=== PATIENT | female | born 1995 | race Caucasian/White ===

== ENCOUNTER → 2023-12-31 14:51 | Outpatient (REF) | payer OTHER, SELFPAY | LOC: PNTC 14:51 | PROVIDERS: ATTENDING PHYSICIAN Obstetrics & Gynecology | DX: Z36.0 Encounter for antenatal screening for chromosomal anomalies (principal); Z36.82 Encounter for antenatal screening for nuchal translucency | CPT/HCPCS: 36415; 76801; 76813 ==

== ENCOUNTER → 2024-02-19 14:01 | Outpatient (REF) | payer OTHER, SELFPAY | LOC: PNTC 14:01 | PROVIDERS: ATTENDING PHYSICIAN Obstetrics & Gynecology | DX: Z34.82 Encounter for supervision of other normal pregnancy, second trimester (principal) | CPT/HCPCS: 76811 ==